=== PATIENT | male | born 1960 | race Caucasian/White ===

== ENCOUNTER 2018-04-25 12:57 | Day surgery (SDC) | payer OTHER, SELFPAY ==
[2018-04-25] MEDS: SODIUM CHLORIDE 0.9% 1,000 ML 200 ML IV (13:15)
[2018-04-25 13:22] VITALS: BP 133/85; PULSE 65; RESP 18; TEMP 36; O2SAT 95; BMI 32.5
--- NOTE | 2018-04-25 14:32 | PM.HP.1 ---
History of Present Illness Date Patient Seen: 04/25/18 Time Patient Seen: 14:32 Chief complaint: [id number] Narrative: Very pleasant 58-year-old gentleman here for screening colonoscopy. He reports his last colonoscopy was 6 years ago right after he turned 52. He has a family history of colon cancer in his father. He currently denies any problems or symptoms related to the function of his GI tract. He reports that he needs a colonoscopy as part of a health maintenance program. Patient History Family & Social History Family History: Reviewed 04/25/18 by Dee Díaz MD Social History: household members spouse Meds Home Medications Medication Instructions Recorded Confirmed Type No Known Home Medications 04/25/18 04/25/18 History Allergies Allergy/AdvReac Type Severity Reaction Status Date / Time No Known Drug Allergies Allergy Verified 04/25/18 13:14 Review of Systems Review of Systems All systems reviewed & are unremarkable except as noted in HPI and below Exam Vital Signs (past 8 hours): - 04/25/18 13:22 Temperature 96.8 F L Pulse Rate 65 Respiratory Rate 18 Blood Pressure 133/85 H Pulse Oximetry 95 Oxygen Delivery Method Room Air Narrative Exam Narrative: Very pleasant gentleman in no obvious distress. HEENT: Normocephalic and atraumatic, pupils equal round reactive to light accommodation with anicteric sclera Lungs: Clear to auscultation bilaterally Heart: Regular rate and rhythm without murmur rub or gallop Abdomen: Soft, nontender, active bowel sounds Extremities: Warm and well perfused and without edema Assessment & Plan Plan: Assessment/Plan Narrative: Pleasant gentleman with a family history of colon cancer who is here for screening colonoscopy. We discussed the risks and benefits of procedure the patient expressed desire to complete it today
[2018-04-25] MEDS: MIDAZOLAM 5 MG/5 ML VIAL IV (15:10)
[2018-04-25] MEDS: fentaNYL 250 MCG/5 ML INJ IV (15:11)
--- NOTE | 2018-04-25 15:16 | PM.OP.1 ---
Operative Date/Time/Diagnoses Date of procedure: 04/25/18 Time of procedure: 15:16 Pre-op diagnosis: Screening Post-op diagnosis: same Procedure & Clinicians Procedure: Colonoscopy to the cecum Same procedure as scheduled: Yes Indications: Last colonoscopy 5 years ago in the setting of a family history of colon cancer Surgeon: Dee Díaz Anesthesia Type: Sedation (Versed 8 mg; fentanyl 250 mcg) Operative Notes Findings: 1. Excellent prep 2. No polyps or mass lesions 3. No AV malformations 4. Mildly tortuous colon with a lax sigmoid segment 5. Minimal diverticulosis 6. Grade 1 internal hemorrhoids Closure Type: not applicable Specimen(s): none sent Estimated Blood Loss (mL): 0 Procedure in detail: After obtaining informed consent, the patient was brought to the GI suite and placed in the left lateral decubitus position on the examination table. After placement of appropriate monitors, the patient was given incremental doses of Versed and Fentanyl until an appropriate level of sedation was achieved. A time out was held per SCOAP protocol. A digital rectal examination was performed and did not reveal any masses or obstructing lesions. The colonoscope was gently passed into the patient's anus and the entire colon navigated to the level of the cecum with minimal difficulty. Once in the cecum, the scope was withdrawn being sure to go before and beyond all mucosal folds and prominences and get an excellent examination. The findings are noted above. At the level of the rectal vault, the scope was retroflexed and the internal anal canal was examined. The scope was straightened and air aspirated from the colon. The instrument was removed from the patient's body and the procedure was concluded. The patient was allowed to awaken from sedation without difficulty and taken to the post-anesthesia care unit in good condition. Total sedation time 19 min Total withdrawal time 10 min 9 sec Condition: stable Disposition: PACU Plan for aftercare: 1. Discharge to home 2. Plan for next colonoscopy in 5 years due to the patient's family history
[2018-04-25 15:20] VITALS: BP 118/81; PULSE 58; RESP 11; TEMP 37.1; O2SAT 93
[2018-04-25 15:25] VITALS: BP 125/86; PULSE 60; RESP 12; O2SAT 92
[2018-04-25 15:30] VITALS: BP 121/88; PULSE 57; RESP 11; O2SAT 92
[2018-04-25 15:35] VITALS: BP 115/70; PULSE 67; RESP 16; O2SAT 94
[2018-04-25 15:52] VITALS: BP 115/73; PULSE 57; RESP 16; TEMP 36.6; O2SAT 96
== END 2018-04-25 16:03 | disposition home or self-care (01) ==
PROVIDERS: Visit Provider Surgery
PROC: 0DJD8ZZ Inspection of Lower Intestinal Tract, Via Natural or Artificial Opening Endoscopic (ICD-10-PCS; CPT 45378; principal; 2018-04-25 14:00)
DX: Z12.11 Encounter for screening for malignant neoplasm of colon (principal); K57.30 Diverticulosis of large intestine without perforation or abscess without bleeding; K64.0 First degree hemorrhoids; Z80.0 Family history of malignant neoplasm of digestive organs
CPT/HCPCS: 45378; 99152; J2250; J3010

== ENCOUNTER → 2018-12-19 18:28 | Outpatient (CLI) | payer OTHER, SELFPAY | PROVIDERS: Visit Provider Physician Assistant | DX: L02.91 Cutaneous abscess, unspecified (principal) | CPT/HCPCS: 87070; 87075; 87205 ==

== ENCOUNTER → 2019-01-03 10:55 | Outpatient (CLI) | payer SELFPAY | PROVIDERS: PCP Family Medicine; Visit Provider Family Medicine | DX: R22.1 Localized swelling, mass and lump, neck (principal) | CPT/HCPCS: 87070; 87205 ==

== ENCOUNTER → 2019-03-20 09:34 | Outpatient (CLI) | payer OTHER, SELFPAY ==
[2019-03-20 11:09] LABS: Cholesterol 166 mg/dL (140-199); Glucose 85 mg/dL (70-100); HDL Cholesterol 31 mg/dL (40-60); LDL Cholesterol Calculated 108 mg/dL (<100); Triglycerides 137 mg/dL (35-150)
== END ==
PROVIDERS: PCP Family Medicine; Visit Provider Family Medicine
DX: Z13.1 Encounter for screening for diabetes mellitus (principal); Z13.220 Encounter for screening for lipoid disorders
CPT/HCPCS: 36415; 80061; 82947

== ENCOUNTER → 2019-09-21 11:53 | Outpatient (CLI) | payer OTHER, SELFPAY ==
[2019-09-21 12:48] LABS: Alanine Aminotransferase 57 IU/L (<50); Albumin 4.5 g/dL (3.5-5.0); Albumin Globulin Ratio 1.7 (1.0-2.8); Alkaline Phosphatase 76 U/L (38-126); Aspartate Aminotransferase 55 IU/L (17-59); BUN Creatinine Ratio 25.6 (6-22); Bilirubin Total 0.9 mg/dL (0.2-1.3); Blood Urea Nitrogen 23 mg/dL (9-20); Calcium 9.2 mg/dL (8.4-10.2); Carbon Dioxide 31 mmol/L (22-32); Chloride 105 mmol/L (98-107); Cholesterol 136 mg/dL (140-199); Estimated Glomerular Filt Rate > 60.0 mL/min (>60); Globulin 2.6 g/dL (1.7-4.1); Glucose 81 mg/dL (70-100); HDL Cholesterol 38 mg/dL (40-60); HEMOLYSIS < 15 (0-50); LDL Cholesterol Calculated 77 mg/dL (<100); Potassium 3.9 mmol/L (3.4-5.1); Sodium 144 mmol/L (137-145); Total Protein 7.1 g/dL (6.3-8.2); Triglycerides 107 mg/dL (35-150)
== END ==
PROVIDERS: PCP Family Medicine; Visit Provider Family Medicine
DX: E78.2 Mixed hyperlipidemia (principal)
CPT/HCPCS: 36415; 80053; 80061

== ENCOUNTER 2022-04-24 14:33 | Emergency (ER) | payer OTHER, SELFPAY ==
[2022-04-24 14:44] VITALS: BP 178/100; PULSE 64; RESP 15; O2SAT 99; BMI 36.1
--- NOTE | 2022-04-24 15:52 | ED_ITS ---
HPI - Skin/Abscess/Foreign Bdy <Isaías Montano PA-C - Last Filed: 04/24/22 16:47> General Chief complaint: Skin/Abscess/Foreign Body Stated complaint: Inflamed Cyst on Neck Time Seen by Provider: 04/24/22 15:08 Source: patient Mode of arrival: Ambulatory Limitations: no limitations History of Present Illness HPI narrative: Patient is a 62-year-old male who presents to the emergency room for a complaint of continued systems neck. Admits that he had a similar type cyst about 3 years ago that required draining and antibiotics. States this started about 10 days ago with pain. He went to the walk-in clinic on Tuesday where was drained packed he was given Bactrim antibiotic. States he saw a apron cleaner on we evaluated the cyst and had no major concerns at that time. Today he noticed that the cyst was not getting better they reported to the [facility] clinic. Was told by the [facility] provider to report to the ER for possible CT to rule out any other concerns. And is mildly painful and is about 3 on a scale of 10. Pain does not radiate denies changes in vision headache fever chills or any other men meningeal signs. Started taking Bactrim on Tuesday and was given an additional supply that will make his total treatment time to ED for 10 days. Related Data Previous Rx's Medication Instructions Recorded rosuvastatin 10 mg tablet See Rx Instructions .Route 02/15/22 .COMPLEX #30 tabs sulfamethoxazole 800 1 tab PO Q12H 10 days #20 tabs 04/24/22 mg-trimethoprim 160 mg tablet (Bactrim DS) Allergies Allergy/AdvReac Type Severity Reaction Status Date / Time No Known Drug Allergies Allergy Verified 04/24/22 14:44 Review of Systems <Isaías Montano PA-C - Last Filed: 04/24/22 16:47> Review of Systems Narrative: REVIEW OF SYSTEMS:. General: No weight change, generally healthy, no change in strength or exercise tolerance. No fever/chill. No fatigue. Head: No headaches, no vertigo, no injury. Eyes: Normal vision, no diplopia, no tearing, no scotomata, no pain. Ears: No change in hearing, no tinnitus, no bleeding, no vertigo. Nose: No epistaxis, no coryza, no obstruction, no discharge. Mouth: No dental difficulties, no gingival bleeding, no use of dentures. Neck: No stiffness, no pain, no tenderness, no noted masses. Chest: No dyspnea, no wheezing, no hemoptysis, no cough. Heart: No chest pains, no palpitations, no syncope, no orthopnea. Abdomen: No change in appetite, no dysphagia, no abdominal pains, no bowel habit changes, no emesis, no melena. Musculoskeletal: No pain in muscles or joints, no limitation of range of motion, no paresthesia or numbness. Neurologic: No weakness, no tremor, no seizures, no changes in mentation, no ataxia. Psychiatric: No depressive symptoms, no changes in sleep habits, no changes in thought content.. Derm: Painful cyst to posterio neck. Patient History <Isaías Montano PA-C - Last Filed: 04/24/22 16:47> Medical History Cellulitis and abscess of neck Obesity Family History Father Cancer Myocardial infarction Stroke Brother Myocardial infarction Mother Hypertension Social History marital status: household members: family lives independently: Yes caregiver/support person: No housing: house education level: college occupational status: employed Smoking Status: Never smoker second hand exposure: No alcohol intake: never substance use type: does not use Smoking Status: Never smoker alcohol intake frequency: holidays/special occasions only Substance Use Type: does not use Exam <Isaías Montano PA-C - Last Filed: 04/24/22 16:47> Narrative Exam Narrative: Physical Exam: General: Normal appearance, well developed, well nourished, alert, and awake. Not in acute distress. ? Head: Normocephalic, no lesions. ?? Eyes: PERRLA, EOM's full, conjunctivae clear. ? Ears: EAC's clear, TM's normal. ?? Throat: Clear, no exudates, no lesions. ?? Neck: Supple, no masses, no thyromegaly, no bruits. ?? Chest: Lungs clear, no rales, no rhonchi, no wheezes. ?? Heart: RR, no murmurs, no rubs, no gallops. ?? Neuro: Physiological, no localizing findings, CN2-12 intact. ?? Extremities: Warm, well perfused, FROM, no deformities, no edema, no erythema. ?? PSYCHIATRIC: The mood is good, no blunted affect. Speech is clear. Thought process is linear, thought content is appropriate. The voice is without significant inflection.. Initial Vital Signs Initial Vital Signs: Vital Signs Pulse Rate 64 04/24/22 14:44 Respiratory Rate 15 04/24/22 14:44 Blood Pressure 178/100 H 04/24/22 14:44 Pulse Oximetry 99 04/24/22 14:44 Oxygen Delivery Method 04/24/22 14:44 <Doroteo De Anda DO - Last Filed: 04/25/22 11:33> Initial Vital Signs Initial Vital Signs: Vital Signs Pulse Rate 64 04/24/22 14:44 Respiratory Rate 15 04/24/22 14:44 Blood Pressure 178/100 H 04/24/22 14:44 Pulse Oximetry 99 04/24/22 14:44 Oxygen Delivery Method 04/24/22 14:44 <Doroteo De Anda DO - Last Filed: 04/25/22 11:33> Abscess I/D I&D #1: Site: neck Local Anesthetic: lidocaine 1% and with epi Amount of anesthesia used (mL): 6 Technique: incised with #11 blade Amount of fluid expressed (mL): 15 Irrigation: No Packing used?: none Course <Isaías Montano PA-C - Last Filed: 04/24/22 16:47> Orders Ordered: Discontinued Medications Bacitracin (Bacitracin Oint 0.9 Gm Pckt) 2 applic TOP NOW ONE Stop: 04/24/22 16:38 Last Admin: 04/24/22 16:43 Dose: 2 applic Documented By: LAUREN Vital Signs Vital signs: Vital Signs - 8 hr 04/24/22 14:44 Pulse Rate 64 Respiratory Rate 15 Blood Pressure 178/100 H Pulse Oximetry 99 Oxygen Delivery Method Room Air <Doroteo De Anda DO - Last Filed: 04/25/22 11:33> Orders Ordered: Discontinued Medications Bacitracin (Bacitracin Oint 0.9 Gm Pckt) 2 applic TOP NOW ONE Stop: 04/24/22 16:38 Last Admin: 04/24/22 16:43 Dose: 2 applic Documented By: LAUREN Vital Signs Vital signs: Vital Signs - 8 hr 04/24/22 14:44 Pulse Rate 64 Respiratory Rate 15 Blood Pressure 178/100 H Pulse Oximetry 99 Oxygen Delivery Method Room Air MDM - Skin/Abscess/Foreign Bdy <Isaías Montano PA-C - Last Filed: 04/24/22 16:47> [facility] Narrative Medical decision making narrative: Patient is a 62-year-old male who presents to the emergency room for a complaint of continued systems neck. Admits that he had a similar type cyst about 3 years ago that required draining and antibiotics. States this started about 10 days ago with pain. He went to the walk-in clinic on Tuesday where was drained packed he was given Bactrim antibiotic. States he saw a apron cleaner on we evaluated the cyst and had no major concerns at that time. Today he noticed that the cyst was not getting better they reported to the [facility] clinic. Was told by the [facility] provider to report to the ER for possible CT to rule out any other concerns. And is mildly painful and is about 3 on a scale of 10. Pain does not radiate denies changes in vision headache fever chills or any other men meningeal signs. Started taking Bactrim on Tuesday and was given an additional supply that will make his total treatment time to ED for 10 days. P ortable ultrasound done by Dr. De Anda revealed fluid in the cyst sac. Dr. De Anda made a small 0.25 incision and used iris iris scissors and needle local [place] truck driver to manipulate sac to induce the drainage of 15 cc of serosanguineous secretions. This was done without complications. The nurse applied antibiotic ointment and dressing. Patient instructed on care and dressing and advised to continue antibiotics as ordered and also advised to return to the emergency room showed emergent concerns arise patient agrees plan. Discharge Plan Departure Patient Disposition: Home Clinical Impression: Abscess of skin or subcutaneous tissue Instructions: DI for Skin Abscess Activity Restrictions/Additional Instructions: *You have been diagnosed with [neck abscess. An incision was made in your abscess and it was drained for copious amounts of purulent secretions at this visit. The nurse applied antibiotic ointment and a dressing at this time. She also supply you with care instructions and supplies for care at home. I suggest to continue the antibiotics as ordered to complete her 10 day supply and change dressings as needed. Also suggest you refrain from moisture to the area or foreign body contact to the area. I also suggest she return to the emergency room to do any emergent concerns arise.] *What to do: *Please continue to take your regular medications as directed. [ ] New medication prescriptions sent to your pharmacy: [ ] [ ] New medication written as a paper prescription [x] No new medications given *Please follow up with your primary care provider in 2-3 days, call for an appointment. Let them know you were seen in the Emergency Department and that we ask that you be seen in follow up. We will electronically transmit a record of today's note if your PCP is in our system *If you do not have a primary care provider please contact the [facility] Resource line at [phone]. They will ask some questions about your medical history and help get you set up with a doctor in the community. *Return to Emergency Department if you should have any new, worsening or concerning symptoms, such as [fever greater than 101 F, shaking chills, worsening pain, persistent vomiting or other bothersome symptoms] Prescriptions: No Action sulfamethoxazole-trimethoprim [Bactrim DS] 800-160 mg tablet 1 tab PO Q12H 10 Days Qty: 20 0RF rosuvastatin 10 mg tablet See Rx Instructions .ROUTE .COMPLEX Qty: 30 3RF Dose Instruction: take 1 tablet by mouth once daily Rx Instructions: take 1 tablet by mouth once daily Referrals: Carmen Munoz MD [Primary Care Provider] - Visit Report Forms: Patient Portal/API <Doroteo De Anda DO - Last Filed: 04/25/22 11:33> [facility]estation: I was immediately available in the department for consultation. This documentation has been reviewed and I agree with assessment and plan. Supervised by Doroteo De Anda DO
[2022-04-24 16:30] VITALS: BP 148/80; PULSE 65; RESP 18; O2SAT 99
[2022-04-24] MEDS: BACITRACIN OINT 0.9 GM PCKT 2 APPLIC TOP (16:43)
--- NOTE | 2022-04-24 16:56 | ED_ITS ---
HPI - Skin/Abscess/Foreign Bdy General Chief complaint: Skin/Abscess/Foreign Body Stated complaint: Inflamed Cyst on Neck Time Seen by Provider: 04/24/22 15:08 Source: patient Mode of arrival: Ambulatory Limitations: no limitations Related Data Previous Rx's Medication Instructions Recorded rosuvastatin 10 mg tablet See Rx Instructions .Route 02/15/22 .COMPLEX #30 tabs sulfamethoxazole 800 1 tab PO BID 5 days #10 tabs 04/20/22 mg-trimethoprim 160 mg tablet (Bactrim DS) sulfamethoxazole 800 1 tab PO Q12H 10 days #20 tabs 04/24/22 mg-trimethoprim 160 mg tablet (Bactrim DS) Allergies Allergy/AdvReac Type Severity Reaction Status Date / Time No Known Drug Allergies Allergy Verified 04/24/22 14:44 Patient History Medical History Cellulitis and abscess of neck Obesity Family History Father Cancer Myocardial infarction Stroke Brother Myocardial infarction Mother Hypertension Social History marital status: household members: family lives independently: Yes caregiver/support person: No housing: house education level: college occupational status: employed Smoking Status: Never smoker second hand exposure: No alcohol intake: never substance use type: does not use Smoking Status: Never smoker alcohol intake frequency: holidays/special occasions only Substance Use Type: does not use Exam Initial Vital Signs Initial Vital Signs: Vital Signs Pulse Rate 64 04/24/22 14:44 Respiratory Rate 15 04/24/22 14:44 Blood Pressure 178/100 H 04/24/22 14:44 Pulse Oximetry 99 04/24/22 14:44 Oxygen Delivery Method 04/24/22 14:44 Course Orders Ordered: ED Orders 04/24/22 16:29 Wound Culture and Gram Stain Stat Discontinued Medications Bacitracin (Bacitracin Oint 0.9 Gm Pckt) 2 applic TOP NOW ONE Stop: 04/24/22 16:38 Last Admin: 04/24/22 16:43 Dose: 2 applic Vital Signs Vital signs: Vital Signs - 8 hr 04/24/22 14:44 04/24/22 16:30 Pulse Rate 64 65 Respiratory Rate 15 18 Blood Pressure 178/100 H 148/80 H Pulse Oximetry 99 99 Oxygen Delivery Method Room Air Room Air Discharge Plan Departure Patient Disposition: Home Clinical Impression: Abscess of skin or subcutaneous tissue Instructions: DI for Skin Abscess Activity Restrictions/Additional Instructions: *You have been diagnosed with [neck abscess. An incision was made in your abscess and it was drained for copious amounts of purulent secretions at this visit. The nurse applied antibiotic ointment and a dressing at this time. She also supply you with care instructions and supplies for care at home. I suggest to continue the antibiotics as ordered to complete her 10 day supply and change dressings as needed. Also suggest you refrain from moisture to the area or foreign body contact to the area. I also suggest she return to the emergency room to do any emergent concerns arise.] *What to do: *Please continue to take your regular medications as directed. [ ] New medication prescriptions sent to your pharmacy: [ ] [ ] New medication written as a paper prescription [x] No new medications given *Please follow up with your primary care provider in 2-3 days, call for an appointment. Let them know you were seen in the Emergency Department and that we ask that you be seen in follow up. We will electronically transmit a record of today's note if your PCP is in our system *If you do not have a primary care provider please contact the [facility] Resource line at [phone]. They will ask some questions about your medical history and help get you set up with a doctor in the community. *Return to Emergency Department if you should have any new, worsening or concerning symptoms, such as [fever greater than 101 F, shaking chills, worsening pain, persistent vomiting or other bothersome symptoms] Prescriptions: No Action sulfamethoxazole-trimethoprim [Bactrim DS] 800-160 mg tablet 1 tab PO BID 5 Days Qty: 10 0RF sulfamethoxazole-trimethoprim [Bactrim DS] 800-160 mg tablet 1 tab PO Q12H 10 Days Qty: 20 0RF rosuvastatin 10 mg tablet See Rx Instructions .ROUTE .COMPLEX Qty: 30 3RF Dose Instruction: take 1 tablet by mouth once daily Rx Instructions: take 1 tablet by mouth once daily Referrals: Carmen Munoz MD [Primary Care Provider] - Visit Report Forms: Patient Portal/API
== END 2022-04-24 16:49 | disposition home or self-care (01) ==
PROVIDERS: Emergency Provider Physician Assistant; PCP Family Medicine
DX: L02.11 Cutaneous abscess of neck (principal)
CPT/HCPCS: 10060; 87070; 87075; 87077; 87205; 99283

== ENCOUNTER → 2022-06-26 08:20 | Outpatient (CLI) | payer OTHER, SELFPAY ==
[2022-06-26 09:50] LABS: Alanine Aminotransferase 64 IU/L (<50); Albumin 4.4 g/dL (3.5-5.0); Albumin Globulin Ratio 1.8 (1.0-2.8); Alkaline Phosphatase 77 U/L (38-126); Aspartate Aminotransferase 44 IU/L (17-59); BUN Creatinine Ratio 18.9 (6-22); Bilirubin Total 0.8 mg/dL (0.2-1.3); Blood Urea Nitrogen 18 mg/dL (9-20); Calcium 8.6 mg/dL (8.4-10.2); Carbon Dioxide 30 mmol/L (22-32); Chloride 103 mmol/L (98-107); Cholesterol 124 mg/dL (140-199); Estimated Glomerular Filt Rate > 60 mL/min (>60); Globulin 2.5 g/dL (1.7-4.1); Glucose 95 mg/dL (80-110); HDL Cholesterol 33 mg/dL (40-60); HEMOLYSIS < 15 (0-50); LDL Cholesterol Calculated 74 mg/dL (<100); Potassium 3.7 mmol/L (3.4-5.1); Sodium 143 mmol/L (137-145); Total Protein 6.9 g/dL (6.3-8.2); Triglycerides 84 mg/dL (35-150)
== END ==
PROVIDERS: PCP Family Medicine; Referring Provider Family Medicine; Visit Provider Family Medicine
DX: E78.2 Mixed hyperlipidemia (principal); Z82.49 Family history of ischemic heart disease and other diseases of the circulatory system
CPT/HCPCS: 36415; 80053; 80061

== ENCOUNTER → 2022-07-02 09:59 | Outpatient (CLI) | payer OTHER, SELFPAY ==
[2022-07-02 11:05] LABS: TSH w/ Reflex to FT4 1.29 uIU/mL (0.47-4.68)
[2022-07-02 11:25] LABS: Prostate Specific Antigen 2.56 ng/mL (0.10-4.00)
== END ==
PROVIDERS: PCP Family Medicine; Visit Provider Family Medicine
DX: E78.2 Mixed hyperlipidemia (principal); Z82.49 Family history of ischemic heart disease and other diseases of the circulatory system
CPT/HCPCS: 84153; 84443

== ENCOUNTER → 2023-07-09 09:03 | Outpatient (CLI) | payer OTHER, SELFPAY ==
[2023-07-09 10:16] LABS: Alanine Aminotransferase 53 IU/L (<50); Albumin 4.3 g/dL (3.5-5.0); Albumin Globulin Ratio 1.7 (1.0-2.8); Alkaline Phosphatase 67 U/L (38-126); Aspartate Aminotransferase 47 IU/L (17-59); BUN Creatinine Ratio 23.3 (6-22); Bilirubin Total 0.8 mg/dL (0.2-1.3); Blood Urea Nitrogen 20 mg/dL (9-20); Calcium 9.2 mg/dL (8.4-10.2); Carbon Dioxide 31 mmol/L (22-32); Chloride 103 mmol/L (98-107); Cholesterol 118 mg/dL (140-199); Estimated Glomerular Filt Rate > 60 mL/min (>60); Globulin 2.6 g/dL (1.7-4.1); Glucose 101 mg/dL (80-110); HDL Cholesterol 38 mg/dL (40-60); HEMOLYSIS < 15 (0-50); LDL Cholesterol Calculated 61 mg/dL (<100); Potassium 4.4 mmol/L (3.4-5.1); Sodium 140 mmol/L (137-145); Total Protein 6.9 g/dL (6.3-8.2); Triglycerides 94 mg/dL (35-150)
== END ==
PROVIDERS: PCP Family Medicine; Referring Provider Family Medicine; Visit Provider Family Medicine
DX: E78.5 Hyperlipidemia, unspecified (principal)
CPT/HCPCS: 36415; 80053; 80061

== ENCOUNTER 2023-12-01 10:46 | Day surgery (SDC) | payer OTHER, SELFPAY ==
[2023-12-01] MEDS: LACTATED RINGERS 1,000 ML 100 ML IV (11:13)
[2023-12-01 11:14] VITALS: BP 146/89; PULSE 65; RESP 16; TEMP 36.8; O2SAT 96
--- NOTE | 2023-12-01 11:36 | PM.HP.1 ---
History of Present Illness History of Present Illness Date Patient Seen: 12/01/23 Time Patient Seen: 11:36 Chief complaint: SDC Narrative: Dimitris is a 64-year-old man who presents for colonoscopy. His last 1 was in 2018 and no polyps were found. [facility] Medical History Cellulitis and abscess of neck Obesity Family History Father Cancer Myocardial infarction Stroke Brother Myocardial infarction Mother Hypertension Social History marital status: household members: family lives independently: Yes caregiver/support person: No housing: house education level: college occupational status: employed Smoking Status: Never smoker second hand exposure: No alcohol intake: never substance use type: does not use Meds Home Medications and Allergies Home Medications Medication Instructions Recorded Confirmed Type rosuvastatin 10 mg tablet See Rx Instructions .Route 09/19/23 12/01/23 Rx .COMPLEX #90 tabs tamsulosin 0.4 mg capsule 0.8 mg (2 x 0.4 mg) PO QPM #180 11/11/23 Rx caps Allergies Allergy/AdvReac Type Severity Reaction Status Date / Time No Known Drug Allergies Allergy Verified 12/01/23 11:06 Exam Vital Signs (past 8 hours): - 12/01/23 11:14 Temperature 98.2 F Pulse Rate 65 Respiratory Rate 16 Blood Pressure 146/89 H Pulse Oximetry 96 Oxygen Delivery Method Room Air Oxygen Delivery Method Room Air Const General: No acute distress Resp Effort & Inspection: normal respiratory effort Skin General: no rashes or lesions noted Neuro General: patient alert and patient awake Assessment & Plan Assessment and plan (1) Colon cancer screening: Status: Acute Plan We reviewed the risks and benefits of colonoscopy for colon cancer screening and he would like to proceed.
--- NOTE | 2023-12-01 12:28 | PM.OP.COLON ---
Operative Date/Time/Diagnoses Date of procedure: 12/01/23 Time of procedure: 12:28 Pre-op diagnosis: Colon cancer screening Post-op diagnosis: same Procedure & Clinicians Study performed: Colonoscopy Same procedure as scheduled: Yes Surgeon: Hilario Peralta Procedure Notes Procedure in detail: Surgeon: Hilario Peralta MD Anesthesia: Gloria Flores CRNA Procedure: The patient was brought to the endoscopy suite, placed in left lateral decubitus position. The patient was connected to monitoring devices. A time-out was performed. Sedation was administered. Once the patient was adequately sedated, a digital rectal exam was performed and was normal. The scope was then inserted and advanced to the cecum where the appendiceal orifice was identified and photographed. The scope was then slowly withdrawn over greater than 6 minutes. The mucosa was thoroughly inspected. No abnormalities were found. The scope was retroflexed in the rectum The scope was straightened and removed. The patient was awakened and brought to recovery. Scope withdrawal time: 22 minutes Sedation time: 37 minutes EBL: 0 Findings: Normal colon Post-procedure Recommendations: Colonoscopy in 10 years Disposition: PACU
[2023-12-01 12:33] VITALS: BP 101/77; PULSE 63; RESP 20; TEMP 36.6; O2SAT 96
[2023-12-01 12:45] VITALS: BP 146/91; PULSE 53; RESP 11; TEMP 36.7; O2SAT 96
== END 2023-12-01 13:08 | disposition home or self-care (01) ==
PROVIDERS: PCP Family Medicine; Referring Provider Surgery; Visit Provider Surgery
PROC: 0DJD8ZZ Inspection of Lower Intestinal Tract, Via Natural or Artificial Opening Endoscopic (ICD-10-PCS; CPT 45378; principal; 2023-12-01 11:45)
DX: Z12.11 Encounter for screening for malignant neoplasm of colon (principal)
CPT/HCPCS: 45378; J2704

== ENCOUNTER → 2024-09-18 17:00 | Outpatient (CLI) | payer OTHER, SELFPAY ==
[2024-09-18 17:46] LABS: Influenza A - CEPHEID Flu A NEGATIVE (NEGATIVE); Influenza B - CEPHEID Flu B NEGATIVE (NEGATIVE); Respiratory Syncytial Virus Negative (Negative)
[2024-09-18 17:48] LABS: COVID-19 CEPHEID 4-PLEX PCR Negative (Negative)
== END ==
PROVIDERS: PCP Family Medicine; Visit Provider Student in an Organized Health Care Education/Training Program
DX: R05.9 Cough, unspecified (principal)
CPT/HCPCS: 0241U

== ENCOUNTER → 2024-09-18 17:26 | Outpatient (CLI) | payer OTHER, SELFPAY ==
--- NOTE | 2024-09-18 17:27 | DI.RAD.S_ITS ---
PROCEDURE: XR CHEST 2V INDICATIONS: cough 4 weeks, LS course/wheezing TECHNIQUE: 2 views of the chest were acquired. COMPARISON: None. FINDINGS: Surgical changes and devices: None. Lungs and pleura: Mild bronchial wall thickening is seen. No definite focal infiltrate. No pleural effusions or pneumothorax. Mediastinum: Mediastinal contours are normal. Heart size is normal. Bones and chest wall: No suspicious bony abnormalities. Soft tissues appear unremarkable. IMPRESSION: Suggestion of mild reactive airway disease such as bronchitis or viral illness. No definite focal infiltrate. No pleural effusion or pneumothorax. Dictated by: Viktor Youssef M.D. on 09/18/2024 at 17:41 Approved by: Viktor Youssef M.D. on 09/18/2024 at 17:41
== END ==
PROVIDERS: PCP Family Medicine; Referring Provider Student in an Organized Health Care Education/Training Program; Visit Provider Student in an Organized Health Care Education/Training Program
DX: R05.8 Other specified cough (principal); R09.89 Other specified symptoms and signs involving the circulatory and respiratory systems
CPT/HCPCS: 0241U; 71046

== ENCOUNTER → 2025-05-18 09:15 | Outpatient (CLI) | payer OTHER, SELFPAY ==
[2025-05-18 10:24] LABS: Alanine Aminotransferase 54 IU/L (<50); Albumin 4.5 g/dL (3.5-5.0); Albumin Globulin Ratio 1.9 (1.0-2.8); Alkaline Phosphatase 75 U/L (38-126); Blood Urea Nitrogen 23 mg/dL (9-20); Calcium 8.8 mg/dL (8.4-10.2); Carbon Dioxide 25 mmol/L (22-32); Chloride 106 mmol/L (98-107); Cholesterol 102 mg/dL (140-199); Estimated Glomerular Filt Rate > 60 mL/min (>60); Globulin 2.4 g/dL (1.7-4.1); Glucose 105 mg/dL (70-99); HDL Cholesterol 40 mg/dL (40-60); HEMOLYSIS 17 (0-50); Potassium 3.9 mmol/L (3.4-5.1); Sodium 140 mmol/L (137-145); Total Protein 6.9 g/dL (6.3-8.2); Triglycerides 83 mg/dL (35-150)
[2025-05-18 10:59] LABS: Microalbumi Creatinin Ratio Ur 14.0 ug/mg CR (<30)
== END ==
PROVIDERS: PCP Family Medicine; Referring Provider Family Medicine; Visit Provider Family Medicine
DX: E78.2 Mixed hyperlipidemia (principal); Z82.49 Family history of ischemic heart disease and other diseases of the circulatory system; Z12.5 Encounter for screening for malignant neoplasm of prostate
CPT/HCPCS: 36415; 80053; 80061; 82043; 82570; G0103

== ENCOUNTER 2025-07-18 13:45 | Outpatient (RCR) | payer OTHER, SELFPAY ==
--- NOTE | 2025-06-03 16:46 | PT.OPPOC ---
Physical, Occupational & Speech Therapy At [facility] Current Diagnoses Pain in unspecified shoulder (06/03/25) Visit Care Team Role Provider Type Carmen Munoz MD Attending Provider Physician Family Provider Primary Care Provider Referring Provider Specialty: Family Practice Address: [address] [place] [address], [id number] Email: [email or web address] Plan Of Care PT OP: Cervical/Upper Extremity Start: 06/03/25 15:23 Freq: Status: Active Protocol: Document 06/03/25 15:24 JESSE (Rec: 06/03/25 16:45 JESSE [id number]) Out-Patient Physical Therapy Visit Information Visit Information Visit Type Initial Evaluation Visit Start Time 15:15 Visit Stop Time 16:00 Visit Number 1 Number of CARPENTER ROUGH Visits 0 Progress Note Due 07/03/25 OP-PT Subjective Patient Comments Patient Comments History of current diagnosis: Patient reports he was scootering with his daughter six weeks ago when he hit a lip in the sidewalk and fell over the handlebars and landed with his R arm outstretched. Since this happened , the pain has improved a little but is still present. 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, stats Physical activities/ hobbies: Ref highschool basketball Pain location: Saman-lateral R shoulder Pain description: dull Pain 0-10/10 (current): 2/10 Pain 0-10/10 (worst): 3/10 Pain 0-10/10 (best): 2/10 Aggravating: Lifting, reaching, throwing basketball Alleviating: rest Function prior to injury: Independent with all ADLs Function current: Independent with all ADLs - limited with reaching, lifting, throwing basketball, carrying groceries Patient goals: Carry bags of groceries and throw basketball with no pain Patient Questionnaires Quick Dash- Upper Extremity Quick Dash UE Score 18.2 Quick Dash UE 1 to 19% Impaired (Score 1-19) Impairment Shoulder Goniometric Range of Motion Shoulder Measured in Degrees Right Active Shoulder ROM WFL No Flexion 110 Abduction 170 External Rotation at 90 90 degrees Abduction External Rotation at 35 45 degrees Abduction Comments Right passive: Flexion: 170 Abduction: 170 Left Active Shoulder ROM WFL Yes Flexion 170 Abduction 170 External Rotation at 85 90 degrees Abduction External Rotation at 35 45 degrees Abduction Special Tests Shoulder Special Tests Drop Arm Rotator Cuff Test Results Positive R Scales Devaughn Impingement Test Results negative B Speed's Biceps Test Results Positive R Neer Impingement Test Results positive R Empty Can Test Results Positive R Biceps Load II Test Test Results positive R Shoulder Strength Shoulder Manual Muscle Testing Left Flexion 5 Normal Abduction (C5) 5 Normal External Rotation 5 Normal Internal Rotation 5 Normal Right Flexion 3+ Fair+ Abduction (C5) 3+ Fair+ External Rotation 3+ Fair+ Internal Rotation 3+ Fair+ Physical Therapy Assessment Goals Three Impairment General function Short Term Goal (STG Patient will report a GROC of 25% in order to show an ) increase in self-perceived function. STG Duration 3 weeks Automated Logistics Specialist Goal (LTG) Patient will report a GROC of 50% in order to show an increase in self-perceived function. LTG Duration 6 weeks Two Impairment R shoulder strength Short Term Goal (STG Patient will demonstrate an increase in R shoulder ) abduction MMT strength to a 4/5 with no pain in order to better function with carrying groceries. STG Duration 3 weeks Automated Logistics Specialist Goal (LTG) Patient will demonstrate an increase in R shoulder abduction MMT strength to a 5/5 with no pain in order to better function with carrying groceries. LTG Duration 6 weeks One Impairment R AROM Short Term Goal (STG Patient will demonstrate an increase in pain-free R ) shoulder flexion AROM to 140 in order to better function with reaching. STG Duration 3 weeks Automated Logistics Specialist Goal (LTG) Patient will demonstrate an increase in pain-free R shoulder flexion AROM to 170 in order to better function with reaching. LTG Duration 6 weeks Assessment Summary Assessment Patient presenting to PT with complaints of R shoulder pain s/p fall on outstretched arm 6 weeks ago. Functional deficits include reaching, lifting, carrying groceries, and throwing a basketball. Objective investigation revealed deficits in R strength (see objective measures: flexion, abduction, ER MMTs), ROM ( See objective measures: flexion AROM), tenderness to palpation of long head of biceps region, and symptom reproduction with biceps and rotator cuff special tests . 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 Physical Therapy Plan Frequency and Duration Frequency of 1-2x/week Treatment Duration of 12 treatment (weeks) Plan of Care Start 06/03/25 Date Plan of Care End 09/01/25 Date Therapeutic Interventions Therapeutic Aquatic Therapy,Balance Training,Coordination Training, Interventions Home Exercise Program,Joint Mobilizations,Manual Therapy,Neuromuscular Re-education,Patient/Caregiver Education,Self-Care/Home Management,Soft Tissue Mobilization,Therapeutic Activities,Therapeutic Exercises Modalities Biofeedback,Cold Pack/Ice Massage,Electric Stimulation, Hot Packs,Infrared Therapy,Iontophoresis,Ultrasound, Vasopneumatic Devices Next Visit Focus/Plan Next Note Type Treatment Note Next Visit Plan Initiate treatment with focus on shoulder strengthening and AROM in pain-free ranges Plan of Care Dates Plan of Care Start Date 06/03/25 Plan of Care End Date 09/01/25 Electronically Signed by: Lisa Sheehan, PT 06/03/25 3714 If you are in agreement with this Plan of Care, please return a signed and dated copy. I have reviewed this Plan of Care and certify that the skilled therapy services above are required to meet the patient?s needs. Physician Signature Date Printed Name and Credentials Clinical Instructor Signature Printed Name and Credentials
--- NOTE | 2025-06-12 15:28 | PT.OTN ---
Current Diagnoses Pain in unspecified shoulder (06/12/25) Physical Therapy Treatment Note PT OP: Cervical/Upper Extremity Start: 06/03/25 15:23 Freq: Status: Active Protocol: Document 06/12/25 14:36 JZ (Rec: 06/12/25 15:27 JZ [id number]) Out-Patient Physical Therapy Visit Information Visit Information Visit Type Treatment Note Visit Start Time 14:38 Visit Stop Time 15:20 Visit Number 2 Number of COMMUNITY RELATIONS REPRESENTATIVE Visits 0 Progress Note Due 07/03/25 OP-PT Subjective Patient Comments Patient Comments Patient reports he has not been doing his exercises because he was having some pain after. Therapeutic Exercises Supine Exercises Supine dowel flexion Supine Exercise Name to 90 degrees Reps/Minutes 3x10 Standing Exercises Flexion table slides Reps/Minutes 2x20 Band pull apart Standing Exercise Horizontal abduction Name Equipment Used level 2 band Reps/Minutes 3x10 Flexion AAROM Standing Exercise With dowel Name Equipment Used Dowel Reps/Minutes 3x10 Comments AAROM used through painful arch Band IR Equipment Used pink band Reps/Minutes 2x10 Comments Cues for elbow at side Band ER Equipment Used pink band Reps/Minutes 3x10 Comments Cues for elbow at side Physical Therapy Assessment Goals Three Impairment General function Short Term Goal (STG Patient will report a GROC of 25% in order to show an ) increase in self-perceived function. STG Duration 3 weeks Jail Goal (LTG) Patient will report a GROC of 50% in order to show an increase in self-perceived function. LTG Duration 6 weeks Two Impairment R shoulder strength Short Term Goal (STG Patient will demonstrate an increase in R shoulder ) abduction MMT strength to a 4/5 with no pain in order to better function with carrying groceries. STG Duration 3 weeks Jail Goal (LTG) Patient will demonstrate an increase in R shoulder abduction MMT strength to a 5/5 with no pain in order to better function with carrying groceries. LTG Duration 6 weeks One Impairment R AROM Short Term Goal (STG Patient will demonstrate an increase in pain-free R ) shoulder flexion AROM to 140 in order to better function with reaching. STG Duration 3 weeks Jail Goal (LTG) Patient will demonstrate an increase in pain-free R shoulder flexion AROM to 170 in order to better function with reaching. LTG Duration 6 weeks Assessment Summary Assessment Treatment focused on R shoulder strengthening and AAROM in symptom-free ranges. Patient tolerated treatment well with no lasting increases in pain levels. Plan next session to follow up on updated HEP and continue with plan of care. Physical Therapy Plan Frequency and Duration Frequency of 1-2x/week Treatment Duration of 12 treatment (weeks) Plan of Care Start 06/03/25 Date Plan of Care End 09/01/25 Date Next Visit Focus/Plan Next Note Type Treatment Note Next Visit Plan Continue with plan of care focused on AAROM and strengthening in pain-free ranges. Current: - Dowel flexion - Band ER - Flexion table slides - Band pull apart
--- NOTE | 2025-06-17 16:07 | PT.OTN ---
Current Diagnoses Pain in unspecified shoulder (06/17/25) Physical Therapy Treatment Note PT OP: Cervical/Upper Extremity Start: 06/03/25 15:23 Freq: Status: Active Protocol: Document 06/17/25 15:23 JESSE (Rec: 06/17/25 16:07 JESSE [id number]) Out-Patient Physical Therapy Visit Information Visit Information Visit Type Treatment Note Visit Start Time 15:15 Visit Stop Time 14:55 Visit Number 3 Number of PROJECT ENGINEER Visits 0 Progress Note Due 07/03/25 OP-PT Subjective Patient Comments Patient Comments Patient reports his shoulder has less pain today although it is feeling generally tired recently. Therapeutic Exercises Standing Exercises Band A Equipment Used 3x10 Band T Resistance orange Reps/Minutes 3x10 Table height shoulder taps Reps/Minutes 3x10 Scaption table slides Reps/Minutes x30 Comments AAROM Flexion table slides Reps/Minutes 2x20 Flexion AAROM Standing Exercise With dowel Name Equipment Used Dowel Reps/Minutes 3x10 Comments AAROM used through painful arch Band IR Equipment Used blue band Reps/Minutes 3x15 Comments Cues for elbow at side Band ER Equipment Used pink band Reps/Minutes 3x15 Comments Cues for elbow at side Physical Therapy Assessment Goals Three Impairment General function Short Term Goal (STG Patient will report a GROC of 25% in order to show an ) increase in self-perceived function. STG Duration 3 weeks [employer] Consultant Goal (LTG) Patient will report a GROC of 50% in order to show an increase in self-perceived function. LTG Duration 6 weeks Two Impairment R shoulder strength Short Term Goal (STG Patient will demonstrate an increase in R shoulder ) abduction MMT strength to a 4/5 with no pain in order to better function with carrying groceries. STG Duration 3 weeks Retirement Goal (LTG) Patient will demonstrate an increase in R shoulder abduction MMT strength to a 5/5 with no pain in order to better function with carrying groceries. LTG Duration 6 weeks One Impairment R AROM Short Term Goal (STG Patient will demonstrate an increase in pain-free R ) shoulder flexion AROM to 140 in order to better function with reaching. STG Duration 3 weeks Retirement Goal (LTG) Patient will demonstrate an increase in pain-free R shoulder flexion AROM to 170 in order to better function with reaching. LTG Duration 6 weeks Assessment Summary Assessment Treatment focused on continued shoulder ROM and strengthening in pain-free ranges. Patient tolerated treatment well with no lasting increases in pain levels . Plan next session to follow up on home exercises and continue with plan of care. Physical Therapy Plan Frequency and Duration Frequency of 1-2x/week Treatment Duration of 12 treatment (weeks) Plan of Care Start 06/03/25 Date Plan of Care End 09/01/25 Date Next Visit Focus/Plan Next Note Type Treatment Note Next Visit Plan Continue with plan of care focused on AAROM and strengthening in pain-free ranges. Current: - Dowel flexion - Band ER - Flexion table slides - Band pull apart
--- NOTE | 2025-07-11 14:34 | PT.OTN ---
Current Diagnoses Pain in unspecified shoulder (07/11/25) Physical Therapy Treatment Note PT OP: Cervical/Upper Extremity Start: 06/03/25 15:23 Freq: Status: Active Protocol: Document 07/11/25 13:44 SP (Rec: 07/11/25 13:46 SP [id number]) Out-Patient Physical Therapy Visit Information Visit Information Visit Type Treatment Note Visit Start Time 13:44 Visit Stop Time 14:34 Visit Number 4 Number of CHEMIC MANGLER Visits 1 Progress Note Due 08/10/25 OP-PT Subjective Patient Comments Patient Comments Pt reports he feels is getting better, but not back to 100%. States is compliant with HEP. Shoulder Goniometric Range of Motion Shoulder Right Active Shoulder ROM WFL No Flexion 152 Abduction 170 External Rotation at 90 90 degrees Abduction External Rotation at 50 45 degrees Abduction Internal Rotation L5 Behind Back (text) Comments FF: Gain 42 deg flexion 152Deg ABD: no significant improvement range 170 deg ER: IR behind back L5 Shoulder Strength Shoulder Manual Muscle Testing Left Flexion 5 Normal Abduction (C5) 5 Normal External Rotation 5 Normal Internal Rotation 5 Normal Right Flexion 4 Good Abduction (C5) 4+ Good+ External Rotation 4+ Good+ Internal Rotation 4+ Good+ Therapeutic Exercises Standing Exercises ABD Standing Exercise added to HEP with HO Name Side right Resistance Tb #2 anchored under foot Equipment Used front of mirror for self form Reps/Minutes 2x15 Comments cues head up neutral FF Standing Exercise added to HEP with HO Name Side right Resistance Tb #2 anchored under foot Equipment Used front of mirror for self form Reps/Minutes 2x15 Comments cues head up neutral Yos off wall Standing Exercise added to HEP with HO Name Side bilateral Resistance Tb #3 Reps/Minutes 15 reps Comments cued for form Table height shoulder taps Standing Exercise 1. shld taps 2. Lateral Trunk Rotation Name Side bilateral Resistance AROM Equipment Used plinth Reps/Minutes 1. 20 2. 10 x2 reps Flexion AAROM Standing Exercise door frame- added to HEP forgot give HO- replaced table Name slides 07/11 Side right Reps/Minutes 20 sec x3 reps Comments cue not over recruit UT/shld shrug Band IR Standing Exercise reviewed Name Side bilateral Resistance TB #2 teal band Reps/Minutes 3x15 Comments Cues for elbow at side Band ER Standing Exercise reviewed Name Side bilateral Resistance TB #2 teal band Reps/Minutes 3x15 Comments Cues for elbow at side Physical Therapy Assessment Goals Three Impairment General function Short Term Goal (STG Patient will report a GROC of 25% in order to show an ) increase in self-perceived function. 07/11/25: GOAL MET: 80% progression improvement self reports STG Duration 3 weeks GOAL MET 07/11/25 Junior Manufacturing Engineer Goal (LTG) Patient will report a GROC of 50% in order to show an increase in self-perceived function. 07/11/25: GOAL MET: 80% progression improvement self reports LTG Duration 6 weeks GOAL MET 07/11/25 Two Impairment R shoulder strength Short Term Goal (STG Patient will demonstrate an increase in R shoulder ) abduction MMT strength to a 4/5 with no pain in order to better function with carrying groceries. 07/11/25: GOAL MET: progressing 4+ /5 most direction except 4/5 FF RUE STG Duration 3 weeks GOAL MET 07/11/25 Junior Manufacturing Engineer Goal (LTG) Patient will demonstrate an increase in R shoulder abduction MMT strength to a 5/5 with no pain in order to better function with carrying groceries. 07/11/25: progressing 4+ /5 most direction except 4/5 FF RUE LTG Duration 6 weeks Progressing 07/11/25 One Impairment R AROM Short Term Goal (STG Patient will demonstrate an increase in pain-free R ) shoulder flexion AROM to 140 in order to better function with reaching. 07/11/25: GOAL MET 152 deg FF RUE STG Duration 3 weeks GOAL MET 07/11/25 Junior Manufacturing Engineer Goal (LTG) Patient will demonstrate an increase in pain-free R shoulder flexion AROM to 170 in order to better function with reaching. 07/11/25: GOAL MET 152 deg FF RUE LTG Duration 6 weeks progressing 07/11/25 Assessment Summary Assessment Pt is making gains in R shoulder AROM and strength. Modified HEP to include more progressing excercises updated table slides to AAROM at corner wall and HABD using resistance band to FF wall slides with scaption resistance then lifting arms off wall over head to support being able to reach for items on high shelf and progress utilizing resistance to give ability to lift down boxes from high shelf with reduction pain. Pt reports only has minimal 1/10 pain and little GH jt discomfort 80% better than when started PT. PT would benefit last 1 appt scheduled to finalize his HEP then continue on his own if feels confident in progression, TBD vs adding couple more appts before DC. Physical Therapy Plan Frequency and Duration Frequency of 1-2x/week Treatment Duration of 12 treatment (weeks) Plan of Care Start 06/03/25 Date Plan of Care End 09/01/25 Date Therapeutic Interventions Therapeutic Aquatic Therapy,Balance Training,Coordination Training, Interventions Home Exercise Program,Joint Mobilizations,Manual Therapy,Neuromuscular Re-education,Patient/Caregiver Education,Self-Care/Home Management,Soft Tissue Mobilization,Therapeutic Activities,Therapeutic Exercises Modalities Biofeedback,Cold Pack/Ice Massage,Electric Stimulation, Hot Packs,Infrared Therapy,Iontophoresis,Ultrasound, Vasopneumatic Devices Next Visit Focus/Plan Next Note Type Treatment Note Next Visit Plan Continue with plan of care focused on AAROM and strengthening in pain-free ranges. Current: - FF AAROM stretch on doorframe/door corner (give HO forgot add) - Band ER, IR - Scaption wall slides with TB then lift off wall - Incline plank trunk rotations, taps to easy now. Next tx trial plank on floor.
--- NOTE | 2025-07-12 16:50 | PT.OPPN ---
Current Diagnoses Pain in unspecified shoulder (07/11/25) Physical Therapy Progress Note PT OP: Cervical/Upper Extremity Start: 06/03/25 15:23 Freq: Status: Active Protocol: Document 07/11/25 16:45 JZ (Rec: 07/12/25 16:50 JZ [id number]) Out-Patient Physical Therapy Visit Information Visit Information Visit Type Treatment Note Visit Start Time 13:44 Visit Stop Time 14:34 Visit Number 4 Number of MOLD CAR PUSHER Visits 1 Progress Note Due 08/10/25 OP-PT Subjective Patient Comments Patient Comments Patient reports his shoulder is improving. His GROC is 80%. He notes improvement with ROM and pain levels but has not yet returned to lifting or reaching activities. Physical Therapy Assessment Goals Three Impairment General function Short Term Goal (STG Patient will report a GROC of 25% in order to show an ) increase in self-perceived function. 07/11/25: GOAL MET: 80% progression improvement self reports STG Duration 3 weeks GOAL MET 07/11/25 Sample Wrapper Goal (LTG) Patient will report a GROC of 50% in order to show an increase in self-perceived function. 07/11/25: GOAL MET: 80% progression improvement self reports LTG Duration 6 weeks GOAL MET 07/11/25 Two Impairment R shoulder strength Short Term Goal (STG Patient will demonstrate an increase in R shoulder ) abduction MMT strength to a 4/5 with no pain in order to better function with carrying groceries. 07/11/25: GOAL MET: progressing 4+ /5 most direction except 4/5 FF RUE STG Duration 3 weeks GOAL MET 07/11/25 Skilled Nursing Goal (LTG) Patient will demonstrate an increase in R shoulder abduction MMT strength to a 5/5 with no pain in order to better function with carrying groceries. 07/11/25: progressing 4+ /5 most direction except 4/5 FF RUE LTG Duration 6 weeks Progressing 07/11/25 One Impairment R AROM Short Term Goal (STG Patient will demonstrate an increase in pain-free R ) shoulder flexion AROM to 140 in order to better function with reaching. 07/11/25: GOAL MET 152 deg FF RUE STG Duration 3 weeks GOAL MET 07/11/25 Sample Wrapper Goal (LTG) Patient will demonstrate an increase in pain-free R shoulder flexion AROM to 170 in order to better function with reaching. 07/11/25: In progress - 152 deg FF RUE LTG Duration 6 weeks progressing 07/11/25 Assessment Summary Assessment Patient presenting to PT after 3 visits for R shoulder pain. Patient has made improvements with pain levels and general function but has not returned to prior level of function. Objective investigation revealed improvement in ROM (see measures: flexion), and strength (see measures: abduction MMT). Patient will continue to benefit from PT to address remaining deficits and return to prior level of function. Physical Therapy Plan Frequency and Duration Frequency of 1-2x/week Treatment Duration of 12 treatment (weeks) Plan of Care Start 06/03/25 Date Plan of Care End 09/01/25 Date Next Visit Focus/Plan Next Note Type Treatment Note Next Visit Plan Continue with plan of care focused on AAROM and strengthening in pain-free ranges. Current: - FF AAROM stretch on doorframe/door corner (give HO forgot add) - Band ER, IR - Scaption wall slides with TB then lift off wall - Incline plank trunk rotations, taps to easy now. Next tx trial plank on floor.
--- NOTE | 2025-07-18 14:30 | PT.OTN ---
Current Diagnoses Pain in unspecified shoulder (07/18/25) Physical Therapy Treatment Note PT OP: Cervical/Upper Extremity Start: 06/03/25 15:23 Freq: Status: Active Protocol: Document 07/18/25 13:03 JESSE (Rec: 07/18/25 14:30 CesarCiara [id number]) Out-Patient Physical Therapy Visit Information Visit Information Visit Type Treatment Note Visit Start Time 13:45 Visit Stop Time 14:25 Visit Number 5 Number of [employer] [facility] [employer] Visits 0 Progress Note Due 08/10/25 OP-PT Subjective Patient Comments Patient Comments Patient reports no pain in his shoulder. He has not had a chance to do his exercises very much. He would like to try his rehab independently and will call PT in two weeks if he is struggling with his rehab independently. Therapeutic Exercises Standing Exercises Table height pushups Reps/Minutes 3x10 Standing flexion AROM Reps/Minutes 2x10 Comments Full ROM, thumb upp ABD Side right Equipment Used 5# Reps/Minutes 4x10 FF Side right Resistance Tb #2 anchored under foot Reps/Minutes 2x10 to 90 degrees Comments cues head up neutral Band A Resistance blue band Equipment Used 3x10 Band T Resistance orange Reps/Minutes 3x10 Table height shoulder taps Standing Exercise 1. shld taps 2. Lateral Trunk Rotation Name Side bilateral Resistance AROM Equipment Used plinth Reps/Minutes 1. 20 2. 10 x2 reps Band IR Standing Exercise reviewed Name Side bilateral Resistance blue band Reps/Minutes 3x15 Comments Cues for elbow at side Band ER Standing Exercise reviewed Name Resistance pink band Reps/Minutes 3x10 Comments Cues for elbow at side Physical Therapy Assessment Goals Three Impairment General function Short Term Goal (STG Patient will report a GROC of 25% in order to show an ) increase in self-perceived function. 07/11/25: GOAL MET: 80% progression improvement self reports STG Duration 3 weeks GOAL MET 07/11/25 Breakfast Host Goal (LTG) Patient will report a GROC of 50% in order to show an increase in self-perceived function. 07/11/25: GOAL MET: 80% progression improvement self reports LTG Duration 6 weeks GOAL MET 07/11/25 Two Impairment R shoulder strength Short Term Goal (STG Patient will demonstrate an increase in R shoulder ) abduction MMT strength to a 4/5 with no pain in order to better function with carrying groceries. 07/11/25: GOAL MET: progressing 4+ /5 most direction except 4/5 FF RUE STG Duration 3 weeks GOAL MET 07/11/25 Prison Goal (LTG) Patient will demonstrate an increase in R shoulder abduction MMT strength to a 5/5 with no pain in order to better function with carrying groceries. 07/11/25: progressing 4+ /5 most direction except 4/5 FF RUE LTG Duration 6 weeks Progressing 07/11/25 One Impairment R AROM Short Term Goal (STG Patient will demonstrate an increase in pain-free R ) shoulder flexion AROM to 140 in order to better function with reaching. 07/11/25: GOAL MET 152 deg FF RUE STG Duration 3 weeks GOAL MET 07/11/25 Breakfast Host Goal (LTG) Patient will demonstrate an increase in pain-free R shoulder flexion AROM to 170 in order to better function with reaching. 07/11/25: In progress - 152 deg FF RUE LTG Duration 6 weeks progressing 07/11/25 Assessment Summary Assessment Treatment focused on progressing shoulder strengthening in symptom-free ranges. Patient tolerated treatment well with no lasting increases in pain levels. Patient will attempt to continue his rehab independently for two weeks and will schedule more appointments if he is unsuccessful. Physical Therapy Plan Frequency and Duration Frequency of 1-2x/week Treatment Duration of 12 treatment (weeks) Plan of Care Start 06/03/25 Date Plan of Care End 09/01/25 Date Next Visit Focus/Plan Next Note Type Treatment Note Next Visit Plan Continue with plan of care focused on AAROM and strengthening in pain-free ranges. Current: - FF AAROM stretch on doorframe/door corner (give HO forgot add) - Band ER, IR - Scaption wall slides with TB then lift off wall - Incline plank trunk rotations, taps to easy now. Next tx trial plank on floor.
--- NOTE | 2025-08-16 13:32 | PT.OPDS ---
Current Diagnoses Pain in unspecified shoulder (07/18/25) Visit Care Team Role Provider Type Carmen Munoz MD Attending Provider Physician Family Provider Primary Care Provider Referring Provider Specialty: Family Practice Address: [address] [place] [address], [place], [address] Email: [email or web address] Visit Number Visit Number 5 Discharge Summary PT OP: Cervical/Upper Extremity Start: 06/03/25 15:23 Freq: Status: Active Protocol: Document 08/16/25 13:31 JESSE (Rec: 08/16/25 13:32 JESSE [id number]) Out-Patient Physical Therapy Visit Information Visit Information Visit Type Discharge Summary Physical Therapy Assessment Assessment Summary Assessment Patient has not been seen in PT in 30 days and has not scheduled more visits. Episode of care will be discharged due to lack of follow up. Please reach out to [facility] Physical therapy department with any questions.
== END 2025-08-20 09:34 | disposition home or self-care (01) ==
LOC: PHYS 13:45
PROVIDERS: Family Provider Family Medicine; PCP Family Medicine; Referring Provider Family Medicine; Visit Provider Family Medicine
DX: M25.519 Pain in unspecified shoulder (principal)
CPT/HCPCS: 97110